=== PATIENT | male | born 2000 | race Caucasian/White ===

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

== ENCOUNTER 2021-05-21 01:25 | Emergency (ER) | payer OTHER ==
[2021-05-21] MEDS ORDERED: ADENOSINE 6 MG/2 ML VIAL IVPUSH ONE ×3 (01:39→01:48)
[2021-05-21 01:42] VITALS: TEMP 98.5; BMI 20.8
[2021-05-21] MEDS ORDERED: SODIUM CHLORIDE 0.9% 500 ML INFUS.BAG IV ONE (01:52)
[2021-05-21 02:12] LABS: BASO % 0.6 % (0-2.0); EOS % 0.6 % (0-4.5); HEMATOCRIT 44.7 % (35.4-49); HEMOGLOBIN 15.1 GM/dL (11.7-16.9); LYMPH % 22.3 % (8-40); MCH 30.5 pg (25.7-33.7); MCHC 33.6 g/dl (32.0-35.9); MEAN CELL VOLUME 90.8 fl (80-96); MEAN PLT VOLUME 8.1 fl (7.5-11.1); MONO % 10.6 % (3.8-10.2); NEUT % 65.9 % (42.8-82.8); PLATELET COUNT 283 10^3/uL (134-434); RBC 4.93 M/mm3 (4.00-5.60); WHITE BLOOD COUNT 10.6 K/mm3 (4.0-10.0)
[2021-05-21 02:49] LABS: ALBUMIN 4.2 g/dl (3.4-5.0); CALCIUM 9.3 mg/dL (8.5-10.1)
[2021-05-21 02:50] LABS: BLOOD UREA NITROGEN 16.9 mg/dL (7-18)
[2021-05-21 02:54] LABS: BILIRUBIN,TOTAL 0.4 mg/dL (0.2-1)
[2021-05-21 03:56] VITALS: BP 106/64; PULSE 105
== END 2021-05-21 03:56 | disposition home or self-care (01) ==
LOC: JER 01:25
PROC: 3E033GC Introduction of Other Therapeutic Substance into Peripheral Vein, Percutaneous Approach (ICD-10-PCS; principal; 2021-05-21)
DX: I47.1 Supraventricular tachycardia (principal)
CPT/HCPCS: 36415; 80053; 84443; 85025; 93005; 93010; 99284-25